=== PATIENT | male | born 1985 | race American Indian/Alaskan Native ===

== ENCOUNTER 2018-11-22 22:23 | Emergency (ER) | payer SELFPAY ==
[2018-11-22 22:28] VITALS: BP 143/60
[2018-11-22] MEDS ORDERED: MORPHINE IV ONE (23:41)
[2018-11-22] MEDS ORDERED: NACL 0.9% 1000 ML 1,000 ML IV ONE (23:41)
[2018-11-22] MEDS ORDERED: CLEOCIN 900 MG/50 mL 900 MG/50 ML BAG IV ONE (23:42)
--- NOTE | 2018-11-22 23:56 | Emergency Department Report ---
Abscess Boil HPI - HPI Chief Complaint: Skin/Abscess/Foreign Body Stated Complaint: BACK PAIN Time Seen by Provider: 11/22/18 22:53 Duration: Today Location: Perianal Severity: Mild History: Yes Pain, No Fever, No Purulent Drainage, No Numbness, No Foreign Body, No Previous History, No Insect Bite HPI: This is a 33-year-old male nontoxic, well nourished in appearance, no acute signs of distress presents to the ED with c/o of perianal swelling and pain. Patient denies any fever or chills. Patient denies any pus or drainge. Denies any numbness, tingling, nausea, vomiting, chest pain, shortness of breath, headache or stiff neck. Patient denies any allergies to significant past medical history. Home Medications: Previous Rx's Medication Instructions Recorded Last Taken Type Acetaminophen/Codeine [Tylenol 1 tab PO Q6H PRN #12 tab 11/23/18 Unknown Rx /Codeine # 3 tab] Clindamycin [Clindamycin CAP] 300 mg PO Q8H #21 cap 11/23/18 Unknown Rx Allergies/Adverse Reactions: Allergies Allergy/AdvReac Type Severity Reaction Status Date / Time No Known Allergies Allergy Unverified 11/23/18 00:31 ED Review of Systems ROS: Stated complaint: BACK PAIN Other details as noted in HPI Constitutional: denies: chills, fever Eyes: denies: eye pain, eye discharge, vision change ENT: denies: ear pain, throat pain Respiratory: denies: cough, shortness of breath, wheezing Cardiovascular: denies: chest pain, palpitations Endocrine: no symptoms reported Gastrointestinal: denies: abdominal pain, nausea, diarrhea Genitourinary: denies: urgency, dysuria Musculoskeletal: denies: back pain, joint swelling, arthralgia Skin: denies: rash, lesions Neurological: denies: headache, weakness, paresthesias Psychiatric: denies: anxiety, depression Hematological/Lymphatic: denies: easy bleeding, easy bruising ED Past Medical Hx - Past Medical History Previous Medical History?: No - Surgical History Past Surgical History?: No - Social History Smoking Status: Never Smoker Substance Use Type: Alcohol, Marijuana - Medications Home Medications: Home Medications Medication Instructions Recorded Confirmed Last Taken Type Acetaminophen/Codeine [Tylenol 1 tab PO Q6H PRN #12 tab 11/23/18 Unknown Rx /Codeine # 3 tab] Clindamycin [Clindamycin CAP] 300 mg PO Q8H #21 cap 11/23/18 Unknown Rx ED Abscess Boil Physical Exam - Exam General: Vital signs noted. No distress. Alert and acting appropriately. Front/Back of Body, Lg (Color): 1 - abscess present Size: 3 cm Exam: Yes Tenderness, Yes Fluctuance, Yes Normal Neurologic Exam, Yes Normal Circulation, No Surrounding Cellulites/Erythema, No Lymphangitis, No Crepitation, No Heart Murmur I & D Note - I & D Note I & D Note: Under sterile field, I used Betadine to cleanse the area. I then used 2% lidocaine plain with 25-gauge 5/8 needle to inject area for anesthetic purposes. Total volume injected 3 mL. I then used an 11 blade to make a 1 cm incision. About 2 mL's of purulent drainage has been noted. I then used a hemo stat to break the abscess formation. I then used sterile 0.9% normal saline flush to flush the wound with total volume of 40 mL used. I then put a 1 inch iodoform packing to the incision. A sterile 4 x 4 with tape has been applied as dressing. Bleeding is under control. Patient tolerated the procedure well with no signs of distress noted. ED Course Vital Signs 11/22/18 22:24 Temperature 98.2 F Pulse Rate 75 Respiratory 16 Rate Blood Pressure 143/60 O2 Sat by Pulse 99 Oximetry - Reevaluation(s) Reevaluation #1: 11/22/18 23:55 Patient is speaking in full sentences with no signs of distress noted. Critical care attestation.: If time is entered above; I have spent that time in minutes in the direct care of this critically ill patient, excluding procedure time. ED Medical Decision Making - Lab Data Result diagrams: 11/22/18 23:59 11/22/18 23:59 - Medical Decision Making This is a 33-year-old male that presents with pilondail cyst. Patient is stable and was examined by me. Labs unremarkable. CT has been obtained and dictated by radiologist with impression of pilonidal cyst. This is incision and drainage and has been performed and patient tolerated well. A sterile dressing has been applied. Patient was educated on proper wound care. Patient is discharged with Bactrim and Tylenol with codeine and was instructed not to operate any machinery while taking Tylenol with codeine due to drowsiness. Patient was instructed to return in 2 days for packing removal. Patient was instructed to refer to Follow-up with a primary care doctor in 3-5 days or if symptoms worsen and continue return to emergency room as soon as possible. At time of discharge, the patient does not seem toxic or ill in appearance. No acute signs of distress noted. Patient agrees to discharge treatment plan of care. No further questions noted by the patient. ED Disposition Clinical Impression: Pilonidal cyst, Encounter for incision and drainage procedure Disposition: TO HOME OR SELFCARE Is pt being admited?: No Does the pt Need Aspirin: No Condition: Stable Instructions: Abscess (ED), Abscess Incision and Drainage (ED), Acetaminophen/Codeine (By mouth) Additional Instructions: Follow-up with a primary care doctor in 3-5 days or if symptoms worsen and co ntinue return to emergency room as soon as possible. Return in 2 days for packing removal. Do not operate any machinery while taking Tylenol with codeine as this may cause drowsiness. Prescriptions: Clindamycin [Clindamycin CAP] 300 mg PO Q8H #21 cap Acetaminophen/Codeine [Tylenol /Codeine # 3 tab] 1 tab PO Q6H PRN #12 tab PRN Reason: Pain , Severe (7-10) [facility] [Primary Care Provider] - 3-5 Days PRIMARY MD RENAE [Referring] - 3-5 Days ANEL BRANCH MD [Staff Physician] - 3-5 Days [facility] [Outside] - 3-5 Days [facility] [Outside] - 3-5 Days Forms: Work/School Release Form(ED)
[2018-11-23 00:34] LABS: Basophils # (Auto) 0.1 K/mm3 (0.0-0.1); Basophils % (Auto) 0.7 % (0.0-1.8); Eosinophils # (Auto) 0.2 K/mm3 (0.0-0.4); Eosinophils % (Auto) 2.2 % (0.0-4.3); Hematocrit 43.9 % (35.5-45.6); Hemoglobin 15.3 gm/dl (11.8-15.2); Lymphocytes # (Auto) 1.9 K/mm3 (1.2-5.4); Lymphocytes % (Auto) 18.6 % (13.4-35.0); Mean Corpuscular HGB Conc 35 % (32-34); Mean Corpuscular Volume 91 fl (84-94); Monocytes # (Auto) 0.8 K/mm3 (0.0-0.8); Monocytes % (Auto) 7.5 % (0.0-7.3); Platelet Count 279 K/mm3 (140-440); Red Blood Count 4.84 M/mm3 (3.65-5.03); Red Cell Distribution Width 13.1 % (13.2-15.2)
[2018-11-23 00:49] LABS: BUN/Creatinine Ratio 10; Blood Urea Nitrogen 11 mg/dL (9-20); Calcium 9.4 mg/dL (8.4-10.2); Hemolysis Index 22
--- NOTE | 2018-11-23 02:02 | Cat Scan Report ---
CT pelvis with contrast INDICATION: Perianal pain and swelling, possible abscess. TECHNIQUE: Axial, coronal and sagittal CT imaging was performed through the pelvis after injection of 100 cc Omn ipaque [address] scans at this location are performed using CT dose reduction for ALARA by means of automated exposure control. COMPARISON: None available. FINDINGS: At the superior margin of the gluteal cleft, there is a hypodense structure with surrounding inflamma tion measuring 2.8 x 2.1 cm on image 34 of series 4. No gas is seen within this structure. Sigmoid diverticulosis is noted without evidence of diverticulitis. No additional significant abnorma lity of the included portions of the colon or small bowel is seen. The appendix is unremarkable. No f ree air or free fluid is identified. Mildly enlarged bilateral inguinal nodes are present. A patient admitting representative node on the left measures 1.7 cm in short axis dimension on image 34 of series 4. No mass is noted along the pelvis. The urinary bladder is unremarkable. The prostate gland is normal in size and appearance. The included vasculature is unremarkable. No significant osseous abnormality is seen. IMPRESSION: 1. Pilonidal cyst with surrounding inflammation as above. 2. Nonspecific bilateral inguinal lymphadenopathy. 3. Additional findings as above. Signer Name: Raheem Chavez MD Signed: 11/23/2018 1:57 AM Workstation Name: [email or web address]
[2018-11-23] MEDS ORDERED: XYLOCAINE 2% INFILTRATI ONE (03:04)
== END 2018-11-23 04:00 | disposition home or self-care (01) ==
LOC: ED 22:23
DX: L05.01 Pilonidal cyst with abscess (principal)
CPT/HCPCS: 11770; 36415; 72193; 80048; 85025; 96365; 96375; 99284; J2270; J7030; Q9966